=== PATIENT | female | born 1995 ===

== ENCOUNTER 2017-03-01 13:53 | Emergency (ER) | payer SELFPAY ==
[2017-03-01 13:53] VITALS: BMI 24.3
[2017-03-01 14:45] VITALS: BP 116/76; PULSE 78; RESP 20; TEMP 98.4; O2SAT 100
--- NOTE | 2017-03-01 15:20 | C.PDOC ---
History Of Present Illness 21 year old female presents to the ED with complaints of back pain for one year that is worse "every day." Patient notes localized worsening pain with movement. She has not had prior PMD evaluation and has no relief with Tylenol. Patient also complaints of skin masses to bilateral shoulders of unknown duration. She denies trauma, pain or discharge of skin masses, or other associated symptoms. BACK PAIN X 1 YEAR WORSE "EVERY DAY". LOCALIZED WORSE W WALKING. NO TRAUMA. NO RELIEF W TYLENOL. DENIES OTHER ASSOC SX. NO PRIOR PMD EVAL ALSO CO SKIN MASSES B/L SHOULDER X UNK DURATION. NO PAIN, DC. EXAM NAD SKIN +KELOIDS MULTIPLE R POST SHOULDER, 1 ON L SHOULDER. NO REDNESS, NONTEND. BACK NO FOCAL TEND AROM W PAIN ON FULL EXTENSION. NO SPASM, FOCAL TEND NEURO INTACT Time Seen by Provider: 03/01/17 14:49 Chief Complaint (Nursing): Abnormal Skin Integrity History Per: Patient Onset/Duration Of Symptoms: Persistent (one year of back pain ), Unknown ( duration of skin masses ) Current Symptoms Are (Timing): Still Present Recent travel outside of the [place]: No Past Medical History Reviewed: Historical Data, Nursing Documentation, Vital Signs Vital Signs: Last Vital Signs Temp 98.4 F 03/01/17 14:44 Pulse 78 03/01/17 14:44 Resp 20 03/01/17 14:44 BP 116/76 03/01/17 14:44 Pulse Ox 100 03/01/17 16:41 Family History: States: Unknown Family Hx - Social History Hx Tobacco Use: No Hx Alcohol Use: No Hx Substance Use: No - Immunization History Hx Tetanus Toxoid Vaccination: No Hx Influenza Vaccination: No Hx Pneumococcal Vaccination: No Review Of Systems Constitutional: Negative for: Fever, Chills Cardiovascular: Negative for: Chest Pain, Palpitations Respiratory: Negative for: Cough, Shortness of Breath Gastrointestinal: Negative for: Nausea, Vomiting Genitourinary: Negative for: Dysuria, Incontinence Musculoskeletal: Positive for: Back Pain Skin: Positive for: Other (skin masses ) Neurological: Negative for: Weakness, Numbness Physical Exam - Physical Exam Appears: Non-toxic, No Acute Distress Skin: Warm, Dry, Other (+ keloids, multiple to right posterior shoulder and one to left shoulder. No redness or tenderness. ) Head: Atraumatic, Normacephalic Neck: Supple Chest: Symmetrical, No Deformity Back: Decreased ROM (AROM with pain on full extension ), No Muscle Spasm, Other (No focal tenderness) Extremity: Normal ROM, No Tenderness Neurological/Psych: Oriented x3, Normal Speech, Normal Cognition, Normal Cranial Nerves, Normal Motor, Normal Sensation Gait: Steady ED Course And Treatment O2 Sat by Pulse Oximetry: 100 (room air ) Progress Note: Patient was given Tylenol, Flexeril, Anaprox, and Lidoderm was applied. Disposition Counseled Patient/Family Regarding: Diagnosis, Need For Followup, Rx Given - Disposition Referrals: [facility] [Outside] [facility] [Outside] Disposition: HOME/ ROUTINE Disposition Time: 15:19 Condition: GOOD Additional Instructions: REMOVE PATCH 12 HOURS AFTER INITIAL APPLICATION. What is keloid? Keloid is an overgrowth of the scar tissue that develops around a wound, usually after the wound has healed. It expands far beyond the original scar. Rather than stay in a straight line, for example, after a surgical incision, it spreads outwards. How do keloid scars develop? Keloid typically starts to develop about three months after the original skin damage although it can take up to a year. The first thing you will probably notice is that rubbery scar tissue starts growing beyond the borders of the original damage. It may become tender, itchy, and painful or produce a burning sensation. Sometimes keloid develops without any apparent skin injury, although most people can identify a cause. The common areas are the breastbone (sternum), shoulder, earlobe and cheek. Keloid growing over a joint can restrict movement. In time, the original red colour changes to brown or becomes pale. Growth continues for a few weeks to a few months. The growth is usually slow but occasionally there is rapid enlargement over a few months. Once they stop growing most keloid scars remain the same size or get smaller. Keloid scars are an overgrowth of skin after a cut or injury. Instead of the skin healing normally, it goes into 'overdrive' and heals 'too much'. They start very small and grow slowly, over many months. There can be a gap of a month or two between the original injury and the keloid scar starting. Typical areas they develop are: Behind the ears after ear piercing. On the breastbone after chickenpox, acne, or an injury. On the side of the shoulder (deltoid) after a vaccination. They can also occur after surgery, done by doctors - for example, after ear reduction surgery (where there is a scar behind the ears) or for removal of a suspicious skin growth. How can a keloid scar be treated? Many patients ask for their keloid scar to be 'cut out' (surgically excised). This is hardly ever successful and in fact can result in an even bigger keloid scar coming back. Keloids must never be cut out by a GP or by anyone who isn't medically qualified. They should only be treated by a specialist doctor such as a game programer or a plastic surgeon. Even then, most doctors will be very guarded in what they promise: how well a keloid scar responds to treatment can be unpredictable; many treatments are a matter of trial and error. There are several ways of treating keloid scars, without surgery: One of the most common methods is injecting steroids and local anaesthetic into the keloid scar itself. The injections are done with a tiny needle, but can be a bit sore. This is called 'intralesional corticosteroid treatment': The steroids and anaesthetic can help to stop the proliferation of the skin cells in the keloid scar (what are called fibroblasts). Approximately one injection is given a month, for 4-6 months. One of the side-effects of too many steroids in the skin can be that the skin gets thin and easily damaged. Another treatment is silicone: it is put on to the skin either as a gel or a flexible sheet. Silicone treatment for skin damage has been used since the 1980s. But their use for keloid scars has not really been proven: They can reduce the thickness of the keloid scar. They can also make the colour paler. However, the silicone sheet can be cumbersome to keep on for long periods of time and also can look unsightly. The silicone gel is almost invisible once it's dry and is easy to apply. However , it can take a while to dry fully and you can't put any clothes on top until it's completely dry. Sometimes putting steroid ointment on, under a dressing, can dampen down a keloid scar. Atape that is impregnated with steroids is prescribed by dermatologists. They are helpful in children, who may not be able to tolerate steroid injections. Laser therapy has been shown to be effective for keloid scars. These are specialised treatments used by specially trained dermatologists. You should not use a cosmetic skin clinic that does not have properly qualified doctors. There are other treatments that are used rarely: radiotherapy or forms of chemotherapy that are injected into a scar. These are emerging treatments that are not commonly used. Prescriptions: Acetaminophen/Cod NO 4 [Tylenol/Cod 300 mg-60 mg] 1 tab PO Q4 PRN #20 tab PRN Reason: Pain, Moderate (4-7) Cyclobenzaprine [Flexeril] 10 mg PO TID #15 tab Lidocaine 5% [Lidoderm] 1 ea TD PRN PRN #10 patch PRN Reason: Pain, Moderate (4-7) Naproxen 500 mg PO BID #30 tab Instructions: Chronic Back Pain (ED) Forms: [facility] ([place]) - Clinical Impression Clinical Impression: Chronic back pain, Keloid - Scribe Statement The provider has reviewed the documentation as recorded by the Kristianibpaige Styles All medical record entries made by the Kristianibpaige were at my direction and personally dictated by me. I have reviewed the chart and agree that the record accurately reflects my personal performance of the history, physical exam, medical decision making, and the department course for this patient. I have also personally directed, reviewed, and agree with the discharge instructions and disposition.
[2017-03-01] MEDS ORDERED: Lidocaine 5% Patch TD STA (15:22)
[2017-03-01] MEDS ORDERED: Naproxen 550 mg Tab PO STA (15:22)
== END 2017-03-01 15:47 | disposition home or self-care (01) ==
LOC: C.ER 13:53
DX: M54.9 Dorsalgia, unspecified (principal); G89.29 Other chronic pain; L91.0 Hypertrophic scar

== ENCOUNTER 2018-09-23 19:16 | Emergency (ER) | payer SELFPAY ==
[2018-09-23 19:16] VITALS: BMI 23.7
[2018-09-23 19:35] VITALS: TEMP 98.2
[2018-09-23] MEDS ORDERED: Sodium Chloride 0.9% 1,000 ML IV ONE (19:49)
--- NOTE | 2018-09-23 19:49 | C.PDOC ---
Time Seen by Provider: 09/23/18 19:49 Chief Complaint (Nursing): Abdominal Pain Past Medical History Vital Signs: Last Vital Signs Temp 98.2 F 09/23/18 19:32 Pulse 100 H 09/23/18 19:32 Resp 18 09/23/18 19:32 BP 126/73 09/23/18 19:32 Pulse Ox 100 09/23/18 19:32 Family History: States: Unknown Family Hx - Social History Hx Tobacco Use: No Hx Alcohol Use: No Hx Substance Use: No - Immunization History Hx Tetanus Toxoid Vaccination: No Hx Influenza Vaccination: No Hx Pneumococcal Vaccination: No ED Course And Treatment - Laboratory Results Result Diagrams: 09/23/18 20:08 09/23/18 20:08 O2 Sat by Pulse Oximetry: 100 (ON RA) Pulse Ox Interpretation: Normal - CT Scan/US Pelvic US Other Rad Studies (CT/US): Read By Radiologist, Radiology Report Reviewed CT/US Interpretation: CLINICAL HISTORY: , abdominal pain. The last menstrual period was on 08/08/2018. EGA by LMP is 6 weeks 4 days. MISTY by LMP is 05/15/2019. The patient is G1, P0, 1 . TECHNIQUE: Realtime sonographic images were obtained in multiple projections. Color Doppler imaging was obtained. COMMENTS: heart motion is not present. Yolk sac is identified measuring 0.11 cm. pole is not identified. Gestational sac is seen measuring 4.8 mm, too small for dating. The uterus is anteverted measuring 8.33 x 4.85 x 5.61 cm. The endometrial echo pattern is within normal limits measuring 1.23 cm. The cervical length measures 3.11 cm. Free fluid is seen within the pelvic cul-de-sac. The right ovary measures 3.67 x 2.16 x 3.34 cm an d the left ovary measures 4.38 x 3.14 x 3.74 cm. Left ovarian corpus luteal cyst is seen measuring 2.29 x 2.77 x 2.54 cm. The right ovary is free of solid or cystic mass. Blood flow is demonstrated within both ovaries. IMPRESSION: 1. pole is not identified. Gestational sac is seen measuring 4.8 mm, too small for dating. clinical correlation is recommended and consider short-term follow-up in 7-10 days. 2. Free fluid within the pelvic cul-de-sac. 3. Left ovarian corpus luteal cyst. . Electronically signed on Sep 23, 2018 10:10:55 PM EDT by: Shaun Hutchinson M.D., BARBARA Certified By ABR & CBCCT. Fellowship Trained MRI and CT Specialist Medical Decision Making Medical Decision Making: Upon provider reevaluation patient is feeling better, is medically stable, and requires no further treatment in the ED at this time. Patient will be discharged home . Counseling was provided and all questions were answered regarding diagnosis and need for follow up with the referred clinic. There is agreement to discharge plan. Return if symptoms persist or worsen. Disposition Counseled Patient/Family Regarding: Studies Performed, Diagnosis, Need For Followup - Disposition Referrals: [facility] [Outside] [facility] [Outside] Disposition: HOME/ ROUTINE Disposition Time: 19:49 Condition: FAIR Additional Instructions: Please have blood work (HCG) repeated in 7-10 days Instructions: - The First Month Forms: [facility] ([place]) - Clinical Impression Clinical Impression:
[2018-09-23 20:13] LABS: BASO # 0.1 K/uL (0.0-0.2); BASO % 0.6 % (0.0-2.0); EOS # 0.1 K/uL (0.0-0.7); EOS % 1.3 % (0.0-4.0); HEMOGLOBIN 13.1 g/dL (11.0-16.0); LYMPH # 2.7 K/uL (1.0-4.3); LYMPH % 27.1 % (20.0-40.0); MEAN CORPUSCULAR HEMOGLOBIN 30.2 pg (27.0-31.0); MEAN CORPUSCULAR HGB CONC 33.7 g/dL (33.0-37.0); MEAN PLATELET VOLUME 8.8 fL (7.2-11.7); MONO # 0.7 K/uL (0.0-0.8); NEUT # 6.5 K/uL (1.8-7.0); RBC 4.33 Mil/uL (3.80-5.20); RED CELL DISTRIBUTION WIDTH 13.2 % (11.5-14.5); WHITE BLOOD COUNT 10.1 K/uL (4.8-10.8)
[2018-09-23 20:14] LABS: MEAN CELL VOLUME 89.7 fL (81.0-99.0)
[2018-09-23 20:16] LABS: HCG,QUALITATIVE URINE POSITIVE (NEGATIVE)
[2018-09-23 20:17] LABS: SQUAMOUS EPITHIAL 5 /hpf (0-5); URINE BILIRUBIN NEGATIVE (NEGATIVE); URINE BLOOD NEGATIVE (NEGATIVE); URINE CLARITY Hazy (Clear); URINE COLOR Yellow (YELLOW); URINE GLUCOSE (UA) NORMAL (Normal); URINE LEUKOCYTE ESTERASE NEG Leu/uL (Negative); URINE PROTEIN NEGATIVE (NEGATIVE); URINE UROBILINOGEN NORMAL mg/dL (0.2-1.0)
[2018-09-23 20:28] LABS: INR 1.2; PROTHROMBIN TIME 12.8 SECONDS (9.7-12.2)
[2018-09-23 20:29] LABS: ALB/GLOB RATIO 1.5 (1.0-2.1); ALBUMIN 4.5 g/dL (3.5-5.0); ALT/SGPT 16 U/L (9-52); AST/SGOT 26 U/L (14-36); BLOOD UREA NITROGEN 12 mg/dL (7-17); CALCIUM 9.3 mg/dl (8.6-10.4); GFR NON-AFRICAN AMERICAN > 60
[2018-09-23 22:37] VITALS: BP 120/70; PULSE 80; RESP 14; O2SAT 99
--- NOTE | 2018-09-24 15:27 | US ---
Pelvic ultrasound HISTORY: . Pelvic pain. COMPARISON: None available. Technique: Real-time sonography was performed through the pelvis utilizing transabdominal and transvaginal techniques. Findings: Uterus: 8.3 x 4.9 x 5.6 centimeters. Heterogeneous echotexture. Anteverted. Endometrium measures 1.2 centimeters, prominent. Cervix measures 3.11 centimeters. Small hypoechoic foci within the uterus suggestive for an intrauterine gestational sac measuring 4.8 millimeters. This is too small to adequately date. Suggestion of a yolk sac measuring 1.1 millimeters. No discrete pole identified. Free fluid noted within the pelvic cul-de-sac. Right ovary: 3.7 x 2.2 x 3.3 centimeters. Normal flow. Left ovary: 4.4 x 3.4 x 3.7 centimeters. Normal flow. Heterogeneous bilobed cystic lesion which may represent a corpus luteal cyst measuring 2.3 x 2.8 x 2.5 centimeters. Impression: Small hypoechoic foci noted within the uterus suggestive for an intrauterine gestational sac measuring 4.8 millimeters. This is too small to adequately date. Suggestion of a small yolk sac measuring 1.1 millimeters. Continued interval sonographic follow-up is recommended. No discrete pole identified. Small amount of free fluid within the pelvic cul-de-sac. Heterogeneous cyst in the left ovary measuring 2.8 centimeters suggestive for possible corpus luteal cyst. Limited 1st trimester ultrasound for viability purposes only. Continued interval followup with serial ultrasound, serial HCG levels, and gynecological consultation would be helpful if clinically indicated. A preliminary report was generated at 10:10 p.m. on 09/23/[address] Shaun Hutchinson from [employer]
== END 2018-09-23 22:37 | disposition home or self-care (01) ==
LOC: C.ER 19:16
DX: O26.891 Other specified pregnancy related conditions, first trimester (principal); Z3A.01 Less than 8 weeks gestation of pregnancy
CPT/HCPCS: 76805; 76817; 80053; 81001; 84702; 84703; 85025; 85610; 85730; 86850; 86900; 96360; 99284; J7030

== ENCOUNTER 2018-09-28 17:28 | Emergency (ER) | payer SELFPAY ==
[2018-09-28 17:28] VITALS: BMI 23.7
[2018-09-28 17:35] VITALS: O2SAT 100
--- NOTE | 2018-09-28 19:38 | C.PDOC ---
History Of Present Illness 23 y/o female, LMP 08/03/18, presents to the ER for repeat Beta Quant levels. Pt was evaluated in [place] [facility] on 09/23/18 and she was instructed to return to the ER for repeat Beta. Currently, pt denies having nausea,vomiting, abdominal pain, and vaginal bleeding. Time Seen by Provider: 09/28/18 17:39 Chief Complaint (Nursing): Medical Clearance History Per: Patient History/Exam Limitations: no limitations Past Medical History Reviewed: Historical Data, Nursing Documentation, Vital Signs Vital Signs: Last Vital Signs Temp 98.7 F 09/28/18 17:32 Pulse 112 H 09/28/18 17:32 Resp 20 09/28/18 17:32 BP 134/81 09/28/18 17:32 Pulse Ox 100 09/28/18 17:32 - Medical History PMH: No Chronic Diseases Surgical History: No Surg Hx Family History: States: No Known Family Hx - Social History Hx Tobacco Use: No Hx Alcohol Use: No Hx Substance Use: No - Immunization History Hx Tetanus Toxoid Vaccination: No Hx Influenza Vaccination: No Hx Pneumococcal Vaccination: No Review Of Systems Constitutional: Negative for: Fever, Chills Gastrointestinal: Negative for: Nausea, Vomiting, Abdominal Pain Genitourinary: Negative for: Vaginal Bleeding Physical Exam - Physical Exam Appears: Non-toxic, No Acute Distress Skin: Warm, Dry Head: Atraumatic, Normacephalic Eye(s): bilateral: Normal Inspection Neck: Supple Chest: Symmetrical Cardiovascular: Rhythm Regular Respiratory: Normal Breath Sounds, No Rales, No Rhonchi, No Wheezing Gastrointestinal/Abdominal: Normal Exam, Soft, No Tenderness, No Guarding, No Rebound Neurological/Psych: Oriented x3, Normal Speech, Normal Cognition ED Course And Treatment - Laboratory Results Lab Results: Beta HCG, Quant 836.18 mIU/ML 09/28/18 18:09 O2 Sat by Pulse Oximetry: 100 (RA) Pulse Ox Interpretation: Normal Medical Decision Making Medical Decision Making: Plan: --Beta, HCG Quantitative beta on 09/23 862, today is 836. no abdominal pain or vaginal bleeding. 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 Disposition Counseled Patient/Family Regarding: Studies Performed, Diagnosis, Need For Followup - Disposition Referrals: [facility] [Outside] [facility] [Outside] [facility]] [facility] [[facility]] Disposition: HOME/ ROUTINE Disposition Time: 20:14 Condition: GOOD Additional Instructions: Follow up with a gallery or museum attendant as soon as possible. It is likely that this is a missed (not a viable ) You may start to bleeding or have abdominal pain. Return to ER for any worse symptoms. Instructions: Miscarriage (DC) Forms: [facility] ([place]), General Discharge Instructions - Clinical Impression Clinical Impression: Missed - PA / PHARMACEUTICAL SALESPERSON / Resident Statement MD/DO has reviewed & agrees with the documentation as recorded. - Scribe Statement The provider has reviewed the documentation as recorded by the [place] Provider Attestation All medical record entries made by the Kristianibpaige were at my direction and personally dictated by me. I have reviewed the chart and agree that the record accurately reflects my personal performance of the history, physical exam, medi kurtis decision making, and the department course for this patient. I have also personally directed, reviewed, and agree with the discharge instructions and disposition.
[2018-09-28 20:18] VITALS: BP 120/74; PULSE 90; RESP 18; TEMP 99.2
== END 2018-09-28 20:28 | disposition home or self-care (01) ==
LOC: C.ER 17:28
DX: O02.1 Missed abortion (principal)